=== PATIENT | female | born 1965 | race African-American/Black ===

== ENCOUNTER 2020-03-05 16:46 | Inpatient (IN) | payer MEDICARE, OTHER ==
[~2020-03-05] VITALS: Ht 182.9 cm; Wt 111.6 kg
--- NOTE | 2020-03-05 17:05 | NUR ---
Patient brought in BIB from [facility], On 5150 hold for danger to others. Per forwarding facility reports, patient is agitated, throwing items, makes bizarre statements, uncooperative and delusional. Upon arrival, patient is awake, alert and oriented mostly to self. Able to answer questions, but mostly delusional and has flight of ideas. Patient also noted to be paranoid about being touched and easily agitated. No signs of acute distress. Denies any pain or discomfort. No GI/ complaints. Able to transfer from bed to wheelchair/ wheelchair to restroom. Continent to bowel and bladder. Denies any medical history but is aware she has issues with "calming down". Cooperative and calm at this time. Side rails up x 2. Safety and fall precautions maintained. 1:1 monitoring done. Will continue to monitor.
--- NOTE | 2020-03-05 17:10 | NUR ---
Dr. Renner at bedside for MSE.
[2020-03-05] MEDS ORDERED: VITAMIN WITH IRON (17:17)
[2020-03-05] MEDS ORDERED: ACET1TAB12 PO (17:17)
[2020-03-05] MEDS ORDERED: CITA20TA19 PO (17:21)
[2020-03-05] MEDS ORDERED: gabapentin PO (17:21)
[2020-03-05] MEDS ORDERED: naproxen PO (17:21)
[2020-03-05] MEDS ORDERED: RISP1TAB7 PO (17:21)
[2020-03-05 17:33] LABS: *BILIRUBIN,URIN NEGATIVE (NEGATIVE); *BLOOD, URINE NEGATIVE (NEGATIVE); *COLOR,URINE YELLOW (YELLOW); *KETONES,URINE NEGATIVE (NEGATIVE); LEUKOCYTE ESTERASE ,URINE TRACE (NEGATIVE); NITRITE, URINE NEGATIVE (NEGATIVE); UGLUCOSE NEGATIVE (NEGATIVE)
--- NOTE | 2020-03-05 17:40 | NUR ---
Meal is provided with plastic utensils. Fall and safety precautions maintained.
[2020-03-05 17:48] LABS: *AMPHETAMINE, URINE POSITIVE (NEGATIVE); *BARBITURATE, URINE NEGATIVE (NEGATIVE); *CANNABINOID, URINE POSITIVE (NEGATIVE); *COCCAINE, URINE NEGATIVE (NEGATIVE); *OPIATE, URINE NEGATIVE (NEGATIVE); *PHENCYCLIDINE SCREEN,URINE NEGATIVE (NEGATIVE)
--- NOTE | 2020-03-05 17:50 | NUR ---
Per MD, patient is medically cleared. Dr. Harvey (Psych) and Ana Al NP (Medical) is admitting patient to [facility]. Belongings list completed and patient is ready to be admitted. Called [facility] to give report. [facility] Nurse will call back.
[2020-03-05 17:53] LABS: *CLARITY,URINE HAZY (CLEAR)
[2020-03-05 17:54] LABS: BACTERIA,URINE FEW /HPF (NONE SEEN); MUCUS,URINE MODERATE /LPF (0-FEW); SQUAMOUS EPITHELIAL CELL,UR MODERATE /HPF (NONE SEEN)
--- NOTE | 2020-03-05 17:56 | NUR ---
Report given to Eryn dumont. Per Jairo, patient's bed is ready by 1830, will wheel patient then.
[2020-03-05] MEDS ORDERED: levoFLOXacin 750 MG TABLET PO SCH (18:15)
[2020-03-05] MEDS ORDERED: MAG HYDROX/AL HYDROX/SIMETH 30 ML LIQUID UDC PO PRN (18:15)
[2020-03-05] MEDS ORDERED: levoFLOXacin 750 MG TABLET ONE (18:15)
[2020-03-05] MEDS ORDERED: MAGNESIUM HYDROXIDE 30 ML LIQUID UDC PO PRN (18:15)
[2020-03-05 18:30] VITALS: BP 121/73
[2020-03-05] MEDS ORDERED: HALOPERIDOL LACTATE 5 MG/1 ML VIAL IM ONE (18:30)
[2020-03-05] MEDS ORDERED: LORAZEPAM 2 MG/1 ML VIAL IM ONE (18:30)
[2020-03-05] MEDS ORDERED: diphenhydrAMINE 50 MG/1 ML VIAL IM ONE (18:30)
--- NOTE | 2020-03-05 18:36 | NUR ---
Patient transported to Psych Unit via her own wheelchair. Upon arrival patient got agitated and verbally aggressive. Psych Nurses assumed care and security was called. Left patient under care of 3 nurses and 1 security personnel, while she is in the same wheelchair.
--- NOTE | 2020-03-05 18:45 | NUR ---
Pt received from ER on 5150. per hold patient was aggressive in [facility], throwing objects and being agitated. Upon face to face eval, pt is agitated, irritable, verbally abusive and threatening, demending to see a dentist and her personal doctor and demands Valium. Pt is not answering questions, does not contract for safety. pt loud and disruptive. Dr. burden was contacted, order for Ativan 2, Haldol 5, Benadryl 25 mg IM was obtained and given. Pt tolerated wells.
[2020-03-05] MEDS: NITROFURANTOIN/NITROFURAN MAC 100 MG CAPSULE PO SCH (21:00)
--- NOTE | 2020-03-05 21:40 | NUR ---
received to care at 1930, lying in bed, yelling for a blanket, but calmed down, after her needs were met. appears distracted by internal stimuli. she continues to refuse to provide information. refused bedtime dose of macrobid, stating, 'I WANT TO SLEEP". as of now, she continues to sleep. no distress noted. will continue to monitor closely.
[2020-03-06] MEDS: ACETAMINOPHEN 325 MG TABLET PO PRN (01:29)
[2020-03-06] MEDS: TEMAZEPAM 7.5 MG CAPSULE PO PRN ×2 (01:29→22:00)
--- NOTE | 2020-03-06 01:29 | NUR ---
pt is now awake. snacks and fluids were given. PRN restoril was given for insomnia. remains calm. will continue to monitor closely.
--- NOTE | 2020-03-06 02:10 | NUR ---
appears to be asleep. no distress noted.
--- NOTE | 2020-03-06 06:00 | NUR ---
slept 6.25 hours. continues to sleep. no distress noted.
[2020-03-06 06:54] LABS: BASOPHILS # (AUTO) 0.1 K/uL (0.0-8.0); EOSINOPHILS # (AUTO) 0.2 K/uL (0.0-0.7); EOSINOPHILS % (AUTO) 2.8 % (0.0-7.0); HEMOGLOBIN 11.8 g/dL (10.9-14.3); LYMPHOCYTES # (AUTO) 2.3 K/uL (20.0-40.0); LYMPHOCYTES % (AUTO) 39.8 % (20.5-51.5); MEAN CORPUSCULAR HEMOGLOBIN 31.8 uug (24.7-32.8); MEAN CORPUSCULAR HGB CONC 33 g/dL (32.3-35.6); MEAN CORPUSCULAR VOLUME 97.5 fL (75.5-95.3); MONOCYTES # (AUTO) 0.6 K/uL (2.0-10.0); MONOCYTES % (AUTO) 10.2 % (0.0-11.0); NEUTROPHILS # (AUTO) 2.6 K/uL (1.8-8.9); NEUTROPHILS % (AUTO) 46.2 % (38.5-71.5); PLATELET COUNT (AUTO) 176 K/uL (179-408); RED BLOOD CELL COUNT(AUTO) 3.69 MIL/uL (3.63-4.92); WHITE BLOOD COUNT (AUTO) 5.7 K/uL (3.8-11.8)
[2020-03-06 07:18] LABS: BILIRUBIN,DIRECT 0.1 mg/dL (0.0-0.2); BILIRUBIN,TOTAL 0.2 mg/dL (0.2-1.0); CREATININE 0.9 mg/dL (0.6-1.3); MAGNESIUM 1.5 mg/dL (1.8-2.4); PHOSPHOROUS 3.5 mg/dL (2.5-4.9); POTASSIUM 4.7 mmol/L (3.5-5.1); TOTAL PROTEIN, SERUM 6.9 g/dL (6.4-8.2)
[2020-03-06 07:23] LABS: THYROID STIMULATING HORMONE 1.711 mIU/mL (0.358-3.740)
[2020-03-06 07:47] VITALS: BP 113/65
--- NOTE | 2020-03-06 08:15 | NUR ---
Pt. received by the nurses's station awake and sitting up on w/c; patient is A/O x 2, able to express needs. NO acute distress noted. Vital signs stable for patient. Patient gets angry and screaming at times during assessment. Safety needs in place, bed in the lowest position and will continue with care.
[2020-03-06] MEDS: NITROFURANTOIN/NITROFURAN MAC 100 MG CAPSULE PO SCH ×2 (08:59→21:56)
[2020-03-06] MEDS: LORAZEPAM 1 MG TABLET PO PRN (08:59)
[2020-03-06] MEDS ORDERED: MAGNESIUM OXIDE 400 MG TABLET PO ONE (15:00)
--- NOTE | 2020-03-06 15:02 | NUR ---
Social Work Initial Discharge Plan: Patient is currently homeless. Patient does not have any social support at this moment. hospital tray service worker will work with the MD to find proper discharge plan for patient.
--- NOTE | 2020-03-06 15:02 | NUR ---
Social Work Family Contact: Patient does not have any family support at this moment.
--- NOTE | 2020-03-06 17:23 | NUR ---
Patient A/O x2, no complains of pain. Patient took all meds, compliant and cooperative with medication and treatment. Patient on w/c and with PT/OT therapy. Patient refused therapy during care. Patient still noted screaming and scolding staff while providing care. Patient gets agitated and angry easily; pt also very needy. Stayed in the room for most of the shift. Did not attend activities. NO SI throughout shift. Ate meals well. Took shower, skin kept clean and dry. Safety measures in place, bed on the lowest position, monitored closely and will continue with care.
--- NOTE | 2020-03-06 22:30 | NUR ---
received to care, asleep, in bed, pleasant upon approach. compliant with medications and staff direction. was seen by Dr Harvey, but she refused to speak with him. she then became angry, yelling and was verbally hostile, about being woken up. PRN restoril was given at 0, to promote sleep. as of 2229, she appears to be asleep. no distress noted. will continue to monitor closely.
--- NOTE | 2020-03-07 06:00 | NUR ---
slept 8.5 hours. continues to sleep. no distress noted.
[2020-03-07] MEDS: LORAZEPAM 1 MG TABLET PO PRN ×3 (07:28→16:42)
[2020-03-07 07:30] VITALS: BP 98/67
[2020-03-07] MEDS: BENZTROPINE MESYLATE 1 MG TABLET PO SCH ×3 (08:06→16:40)
[2020-03-07] MEDS: HALOPERIDOL 5 MG TABLET PO SCH ×4 (08:06→16:40)
[2020-03-07] MEDS: NITROFURANTOIN/NITROFURAN MAC 100 MG CAPSULE PO SCH ×2 (08:06→20:53)
[2020-03-07] MEDS: DIVALPROEX 250 MG TABLET.DR PO SCH ×3 (08:06→16:40)
[2020-03-07] MEDS: NICOTINE 21 MG/24HR PATCH TD SCH (08:06)
--- NOTE | 2020-03-07 09:35 | NUR ---
Received patient rolling around in a wheelchair in the zhong yelling " I am hungry. Somebody better get me some food now". Then went into the room where the yelling continued for a while. Patient is anxious and demanding. Unable to have meaningful conversation without getting irritated and off track. Refused Haldol this am, but took rest of the medications. Patient constantly wants to go smoke. Nicotine patch applied. Patient refused physical therapy. Monitoring patient for behavior escalation and safety.
--- NOTE | 2020-03-07 10:23 | NUR ---
Social Work Note: sanitation worker cleaning machinery contacted [place] police officer Anisa ([phone]) who stated that patient does not have a truant officer.
--- NOTE | 2020-03-07 10:36 | NUR ---
Social Work Coordination of Care: home mission worker faxed Buck referrals to [facility] ([phone]) and [facility] ([phone]). Per, Buck he will follow-up and let me know if patient is accepted.
--- NOTE | 2020-03-07 11:24 | NUR ---
Social Work Individual Therapy: concrete worker met with patient for brief counseling to address patient's aggressive and combative behavior. Patient is not cooperative with this documentation writer. Patient has been verbally abusive towards this documentation writer and has been using profanity. Patient did not want to have a conversation with this documentation writer. Patient has been yelling and has not been cooperative.
[2020-03-07] MEDS: TEMAZEPAM 7.5 MG CAPSULE PO PRN (23:08)
--- NOTE | 2020-03-08 04:56 | NUR ---
GPS/RN: DURING INITIAL ROUND PT WAS NOTED ASLEEP, BREATHING EVEN AND NO SOB. DURING ROUTINE MED PASS PT AWAKE TO NAME AND RESPONDED VERBALLY. ATB THERAPY GIVEN ORDER PER [facility]. PT WAS VERY LOUD AND LIBEL, SWEARING AND BECOMING VERBALLY ABUSIVE TO PEERS IN TV ROOM. PT WAS ASKED TO MOVED AWAY FROM OTHER RESIDENT BY SECURITY TO PREVENT ALTERCATION. PT WAS NO CALMED CONTINUE LOUD TALKING AND SWEARING. LATER PT REQUESTED FOR SLEEP AID AND PRN RESTORIL 7.5MG GIVE. PT WENT BACK TO BED AND ASLEEP AT THIS TIME. Q/15MINS HEAD CHECK ONGOING AND WILL CONTINUE MONITOR.
[2020-03-08 07:51] VITALS: BP 125/65
[2020-03-08] MEDS: NICOTINE 21 MG/24HR PATCH TD SCH (08:53)
[2020-03-08] MEDS: DIVALPROEX 250 MG TABLET.DR PO SCH ×3 (08:53→17:28)
[2020-03-08] MEDS: NITROFURANTOIN/NITROFURAN MAC 100 MG CAPSULE PO SCH ×2 (08:53→21:36)
[2020-03-08] MEDS: BENZTROPINE MESYLATE 1 MG TABLET PO SCH ×3 (08:53→17:28)
[2020-03-08] MEDS: HALOPERIDOL 5 MG TABLET PO SCH ×3 (08:53→17:28)
--- NOTE | 2020-03-08 12:45 | NUR ---
Pt received in dinning room, having conflict with another Pt regarding having cleaned the table and states "he just picked up all the trash from the trash can and spread it all over my clean table". The other Pt was escorted to his room. Pt able to make needs known. No acute distress, SOB, or pain noted. Pt compliant with medications. Able to CFS, denies SI/HI at this time. Pt expressed verbal dissatisfaction by swearing at staff for not being able to access her belongings. Pt was able to be redirected and calmed down in her room. Will continue to monitor for safety.
[2020-03-08 16:14] VITALS: BP 97/60
[2020-03-08] MEDS ORDERED: HALOPERIDOL 1 MG TABLET PO SCH (21:00)
[2020-03-08] MEDS ORDERED: HALOPERIDOL 5 MG TABLET ONE (22:03)
[2020-03-08] MEDS ORDERED: HALOPERIDOL 5 MG TABLET PO ONE (22:07)
--- NOTE | 2020-03-08 22:35 | NUR ---
PT HALDOL 10MG WAS NOT GIVEN DUE TO PT FAST ASLEEP WHEN MEDICATION WAS REMOVED. MEDICATION WILL BE RETURNED FOR UNABLE TO GIVE.
--- NOTE | 2020-03-09 04:12 | NUR ---
GPS: PT WAS ASLEEP DURING ROUTINE MED PASS AT 2100. PT AWAKE AND TOOK ATB MED DUE. PT FALL BACK ASLEEP. NO SOB OR C/O ABNORMAL. CONTINUE MONITORING PT WITH Q/15MINS HEAD CHECK ONGOING.
[2020-03-09 07:30] VITALS: BP 96/64
[2020-03-09] MEDS: BENZTROPINE MESYLATE 1 MG TABLET PO SCH ×3 (08:08→17:08)
[2020-03-09] MEDS: NITROFURANTOIN/NITROFURAN MAC 100 MG CAPSULE PO SCH ×2 (08:08→20:09)
[2020-03-09] MEDS: NICOTINE 21 MG/24HR PATCH TD SCH (08:08)
[2020-03-09] MEDS: DIVALPROEX 250 MG TABLET.DR PO SCH ×3 (08:08→17:08)
[2020-03-09] MEDS: HALOPERIDOL 5 MG TABLET PO SCH ×3 (08:08→20:09)
--- NOTE | 2020-03-09 12:42 | NUR ---
Pt received resting in bed, No acute distress, SOB, or pain noted. Pt able to make needs known. Pt compliant with medications. Able to CFS, denies SI/HI at this time. Will continue to monitor for safety.
[2020-03-09 16:00] VITALS: BP 97/67
[2020-03-09 20:05] VITALS: BP 98/64
[2020-03-09] MEDS: DIVALPROEX 500 MG TABLET.DR PO SCH (21:01)
[2020-03-09] MEDS: TEMAZEPAM 7.5 MG CAPSULE PO PRN (22:29)
--- NOTE | 2020-03-10 01:48 | NUR ---
GPS: PT WAS RECEIVED LYING IN BED, A/OX2, DENIED SI, OR INTENT TO HARM SELF AND OTHERS. PT HAD FEW EPISODE OF AGITATION, CALLING NAMES AND WAS NOT ABLE TO RE-DIRECT TO REALITY. PT ALSO REFUSED ROUTINE MEDICATIONS WHEN OFFERED. PT WAS BECOMING LOUD AND INTENTIONALLY SPILLED WATER ON HER BED WHILE OFFERING HER MEDS. ENCOURAGED TO TAKE HER MEDS BUT PT REFUSED. PT INSIST TO SEE THE DOCTOR AND ISABELL DAVENPORT WAS IN UNIT AND CAME TO HER ROOM, SPOKE TO HER. NEW ORDER WAS PLACE DEPAKTE 500MG IN EVENING AND 250MG IN AM. PT LATER ACCEPTED ROUTINE MEDS AND ATB THERAPY. CONTINUE MONITOR WITH ON AND OFF EPISODE BEHAVIOR AND AGITATION. PT REQUESTED FOR RESTORIL DUE TO UNABLE TO SLEEP AND PRN WAS GIVEN. PT AT THIS TIME IN BED RESTING, Q/15MINS HEAD CHECK ONGOING.
[2020-03-10 08:08] VITALS: BP 90/62
[2020-03-10] MEDS: NITROFURANTOIN/NITROFURAN MAC 100 MG CAPSULE PO SCH (08:33)
[2020-03-10] MEDS: DIVALPROEX 250 MG TABLET.DR PO SCH ×2 (08:34→12:17)
[2020-03-10] MEDS: HALOPERIDOL 5 MG TABLET PO SCH ×3 (08:34→20:00)
[2020-03-10] MEDS: BENZTROPINE MESYLATE 1 MG TABLET PO SCH ×3 (08:34→17:04)
[2020-03-10] MEDS: NICOTINE 21 MG/24HR PATCH TD SCH ×2 (08:38→10:18)
--- NOTE | 2020-03-10 12:49 | NUR ---
Pt received resting in bed, AAOx2, no acute distress, no SOB, and denies pain. Pt able to make needs known. Pt compliant with medications and cooperative with care at this time. Pt able to CFS, denies SI/HI at this time. Will continue to monitor for behavior episodes and safety.
[2020-03-10] MEDS: DIVALPROEX 500 MG TABLET.DR PO SCH (20:00)
--- NOTE | 2020-03-10 22:00 | NUR ---
received to care, lying in bed, asleep, and angry when awakened. remains compliant with medications. easy to redirect. as of 2199, she appears to be asleep. no distress noted. will continue to monitor closely.
--- NOTE | 2020-03-11 06:00 | NUR ---
slept 7.5 hours. continues to sleep. no distress noted.
[2020-03-11 07:50] VITALS: BP 130/80
[2020-03-11] MEDS: BENZTROPINE MESYLATE 1 MG TABLET PO SCH ×3 (08:34→16:02)
[2020-03-11] MEDS: HALOPERIDOL 5 MG TABLET PO SCH ×3 (08:34→20:00)
[2020-03-11] MEDS: DIVALPROEX 250 MG TABLET.DR PO SCH ×2 (08:34→12:19)
[2020-03-11] MEDS: NICOTINE 21 MG/24HR PATCH TD SCH (08:34)
--- NOTE | 2020-03-11 13:27 | NUR ---
Patient easily disturb and agitated by surroundings. Compliant with medication. Patient participates with group activities with good effect. not in distress. Patient seen and examined by JOHN Queen. ordered covid test, sent to specimen to lab. awaiting result. will continue monitor
[2020-03-11 15:46] VITALS: BP 97/63
[2020-03-11] MEDS: DIVALPROEX 500 MG TABLET.DR PO SCH (20:00)
[2020-03-11 20:23] VITALS: BP 101/50
--- NOTE | 2020-03-11 22:00 | NUR ---
received to care, lying in bed, asleep, but easily awakened. remains compliant with medications, and staff direction. as of 2199, she appears to be asleep. no distress noted. will continue to monitor closely.
[2020-03-12] MEDS: TEMAZEPAM 7.5 MG CAPSULE PO PRN (01:23)
--- NOTE | 2020-03-12 01:23 | NUR ---
PRN restoril, given for insomnia
--- NOTE | 2020-03-12 02:00 | NUR ---
appears to be asleep. no distress noted.
--- NOTE | 2020-03-12 06:00 | NUR ---
slept 6 hours. is now awake. assisted with am care, and shower. no distress noted.
[2020-03-12 07:30] VITALS: BP 102/68
[2020-03-12] MEDS: NICOTINE 21 MG/24HR PATCH TD SCH (08:37)
[2020-03-12] MEDS: DIVALPROEX 250 MG TABLET.DR PO SCH ×2 (08:37→12:46)
[2020-03-12] MEDS: BENZTROPINE MESYLATE 1 MG TABLET PO SCH ×3 (08:38→16:08)
[2020-03-12] MEDS: HALOPERIDOL 5 MG TABLET PO SCH ×3 (08:38→20:27)
--- NOTE | 2020-03-12 15:37 | NUR ---
GPS: received patient on her bed, patient able to transfer her self to the wheel chair, ate 200% of breakfast, patient somewhat needy needed to set limit, patient calm cooperative, , grandiouse and easily irritable, patient compliant with medication, will continue monitor
[2020-03-12 16:00] VITALS: BP 99/66
--- NOTE | 2020-03-12 18:54 | NUR ---
patient calm cooperative, no distress, needed redirection and set limit, will continue monitor
[2020-03-12 20:20] VITALS: BP 96/65
[2020-03-12] MEDS: DIVALPROEX 500 MG TABLET.DR PO SCH (20:27)
--- NOTE | 2020-03-12 22:00 | NUR ---
received to care, pleasant upon approach. up in w/c, watching tv, with peers. compliant with medications, and staff direction. is easily agitated, but directable. as of 2199, she appears to be asleep. no distress noted. will continue to monitor closely.
--- NOTE | 2020-03-13 06:00 | NUR ---
slept 6.5 hours. continues to sleep. no distress noted.
[2020-03-13 07:30] VITALS: BP 106/56
[2020-03-13] MEDS: NICOTINE 21 MG/24HR PATCH TD SCH (09:03)
[2020-03-13] MEDS: BENZTROPINE MESYLATE 1 MG TABLET PO SCH ×3 (09:03→17:14)
[2020-03-13] MEDS: DIVALPROEX 250 MG TABLET.DR PO SCH ×2 (09:03→12:28)
[2020-03-13] MEDS: HALOPERIDOL 5 MG TABLET PO SCH ×3 (09:03→20:35)
--- NOTE | 2020-03-13 15:45 | NUR ---
brief Substance Abuse Intervention: Patient was provided with a brief substance abuse intervention and referred to the following substance abuse programs: [facility] ([phone]); [facility] [address] [place] [address] ([phone]); [facility] [address] [facility] [address] ([phone]); [facility] ([phone]); [facility] ([phone]); [facility] ([phone]); [facility] ([phone]).
[2020-03-13 16:00] VITALS: BP 113/72
--- NOTE | 2020-03-13 19:45 | NUR ---
In bed, awake. Denies any pain/discomforts at this time. Safety measures and fall precaution maintained. Continue care as planned.
[2020-03-13] MEDS: DIVALPROEX 500 MG TABLET.DR PO SCH (20:34)
--- NOTE | 2020-03-13 21:20 | NUR ---
Seen in the TV room, chatting with the rest of the patient, calm and cooperative.
[2020-03-13 21:24] VITALS: BP 117/64
--- NOTE | 2020-03-14 06:23 | NUR ---
Slept 7.3 hours. No complaint presented all night. All needs attended and met. No significant event reported. VS stable
[2020-03-14 07:30] VITALS: BP 103/69
[2020-03-14] MEDS: BENZTROPINE MESYLATE 1 MG TABLET PO SCH ×2 (08:30→12:02)
[2020-03-14] MEDS: NICOTINE 21 MG/24HR PATCH TD SCH (08:30)
[2020-03-14] MEDS: HALOPERIDOL 5 MG TABLET PO SCH ×2 (08:30→12:02)
[2020-03-14] MEDS: DIVALPROEX 250 MG TABLET.DR PO SCH ×2 (08:30→12:03)
[2020-03-14] MEDS: ACETAMINOPHEN 325 MG TABLET PO PRN (08:41)
--- NOTE | 2020-03-14 08:43 | NUR ---
SW Discharge Note: Patient will be discharged to assisted [facility], [facility] [address] [place] [address] ( ) via Ambulance transportation at 2pm. Optics Engineer spoke with Dolly Plasterer Foreman at [facility] who confirmed patients acceptance at facility today. Patient is alert and oriented x4 and is unable to plan for self-care, however, is willing to accept care at the facility. Patient denies any suicidal or homicidal ideation. Patient is aware and agreeable with discharge plans. Patient presents with euthymic and congruent mood. Patient will continue to follow-up with Psychiatrist Dr. Harvey and Cena Dr. Cid at [facility] [id number] [place] [id number]; ). Patient does not have any supportive contacts to notify at this time. Patient was provided with a brief substance abuse intervention and referred to the following substance abuse programs: [facility] ([phone]); [facility] [address] [place] [address] ([phone]); [address] [address] ([phone]); [facility] ([phone]); [facility] ([phone]); [facility] ([phone]); [facility] ([phone]). Patient signed the homeless waiver upon discharge and a copy was placed in the chart. Homeless resources were provided and include [address] information line for shelters and homeless resources. A copy of all resources given to patient was also placed in the chart.
--- NOTE | 2020-03-14 10:23 | NUR ---
received patient AOx4, compliant with medication, denies Si and HI, in good mood today, patient aware of her DC planning, Instruction was given, called and gave report to Elyse Barkley Nurse [place], patient is expected to be DC today at 1400, will continue monitor
--- NOTE | 2020-03-14 12:57 | NUR ---
patient was discharged with home instruction given
== END 2020-03-14 12:59 | DRG 885 ==
LOC: ER 16:49 → GPS 17:40
PROVIDERS: ADMIT Psychiatry & Neurology Psychiatry; ATTEND Nurse Practitioner Acute Care
DX: F25.9 Schizoaffective disorder, unspecified (principal); N39.0 Urinary tract infection, site not specified; F17.210 Nicotine dependence, cigarettes, uncomplicated; Z59.0 Homelessness; G47.00 Insomnia, unspecified; E66.9 Obesity, unspecified; Z68.33 Body mass index [BMI] 33.0-33.9, adult; F29 Unspecified psychosis not due to a substance or known physiological condition; F15.10 Other stimulant abuse, uncomplicated; F12.10 Cannabis abuse, uncomplicated; B96.89 Other specified bacterial agents as the cause of diseases classified elsewhere
CPT/HCPCS: 36415; 71045; 80164; 80307; 83735; 84100; 84443; 85025; 87086; 93005; A4663; J1200; J1630; J2060; J3490; U0003-CS